=== PATIENT | female | born 1975 | race Caucasian/White ===

== ENCOUNTER → 2017-12-13 11:49 | Outpatient (CLI) | payer SELFPAY ==
[2017-12-13 12:12] LABS: Absolute Lymphocyte Count 1.89 X10^3/ul (0.83-4.51); Absolute Neutrophil Count 4.1 X10^3/uL (2.0-7.7); Basophil# 0.01 X10^3/uL; Basophil% 0.2 % (0-1); Eosinophil# 0.03 X10^3/uL; Eosinophils% 0.5 % (0-5); Hematocrit 37.7 % (37-47); Hemoglobin 12.3 g/dl (12.0-15.0); Lymphocyte # 1.89 X10^3/ul (4.0); Lymphocyte % 29.3 % (19-41); Mean Corp Hgb Conc 32.6 g/gl (32-36); Mean Corpuscular Hgb 27.3 pg (27.0-32.0); Mean Corpuscular Volume 83.6 fL (81-99); Mean Platelet Vol. 9.3 fl (6.2-12.0); Monocyte# 0.46 X10^3/uL; Monocyte% 7.1 % (0-10); Neutrophil # 4.06 X10^3/uL (2.7-7.7); Neutrophil % 62.7 % (47-70); Platelet Count 305 K/mm3 (150-450); RBC Distribution Width CV 14.7 % (11.6-14.6); RBC Distribution Width SD 44.5 fl (35.1-43.9); Red Blood Count 4.51 M/mm3 (4.2-5.4); White Blood Count 6.5 K/mm3 (4.4-11.0)
[2017-12-13 12:21] LABS: Erythrocyte Sedimentation Rate 10 mm/hr (0-20)
[2017-12-13 12:22] LABS: POSITIVE COUNT NO; POSITIVE DIFFERENTIAL NO; POSITIVE MORPHOLOGY NO
== END ==
PROVIDERS: Visit Provider Family Medicine
DX: R51 Headache (principal); R20.0 Anesthesia of skin
CPT/HCPCS: 85025; 85652; 86140

== ENCOUNTER 2017-12-25 07:42 | Day surgery (SDC) | payer BC, SELFPAY ==
[2017-12-25 08:06] LABS: Internal QC Validated? YES +Cl - CLEAR BKGD; Pregnancy, Urine Negative Negative
[2017-12-25 08:10] VITALS: BP 139/76; PULSE 73; RESP 18; TEMP 36.1; O2SAT 97; BMI 66.9
[2017-12-25 08:29] LABS: Anion Gap 8 (5-15); BUN 15 mg/dL (7-18); BUN/Creat Ratio 22.2 RATIO (10-20); Calcium,Total 8.5 mg/dL (8.5-10.1); Chloride 106 mmol/L (98-107); Creatinine, Serum 0.68 mg/dL (0.55-1.02); EST Glomerular Filtration Rate 101 mL/min (>60); Est Glom Filt Rate - Afr Amer 123 mL/min (>60); Estimated Creatinine Clearance 108.72 ml/min; Glucose 132 mg/dL (74-106); Potassium 4.5 mmol/L (3.5-5.1); Sodium Level 139 mmol/L (136-145)
--- NOTE | 2017-12-25 09:45 | TEM_PTH ---
PATIENT: ALEXANDER EVERETT LOC: [facility] [place] U#:[id number] AGE/SX: 42/F ROOM: RE12/25/[address]: Dr. Je Morris MD : 1975 BED: DIS: 12/25/2017 SPEC #: [id number] RECD: 12/25/17 13:55 STATUS: LUIS SAGE #: [id number] KELBY: 12/25/17 09:[address]: Je Morris DEPT: SURGICAL PATHOLOGY RECD BY: Tien Disla ENTERED: 12/25/17 14:20 SP TYPE: TEMPORAL OTHR DR: Dr. Alan Ryder MD Tissues: Temporal region Procedures: Elastin Stain (control) Special Stain Group II Surgery Specimen Level IV HEADER OPERATION: Biopsy, temporal artery PRE-OP DIAGNOSIS: Headaches above eye region, facial pain, numbness TISSUE SUBMITTED: Right temporal artery biopsy MICROSCOPIC DIAGNOSIS Right temporal artery, biopsy: Negative for giant cell arteritis. See comment. SJ:tessa 12/26/17 COMMENT Elastic stain with matched control was used in the evaluation of the specimen. MICROSCOPIC DESCRIPTION Slides are reviewed. GROSS DESCRIPTION Received in fixative is one container labeled with the patient's name and designated right temporal artery biopsy. The specimen consists of an elongated piece of pink-red soft tissue measuring 3 cm in length and 0.1 cm in diameter. Multiple belia are noted. The entire specimen is submitted in one cassette. It will be serially sectioned at the time of embedding. / MOLLY:tessa 12/25/17 TC:4 CPT: 15417, 91656
[2017-12-25] MEDS: Bupivacaine Mpf 0.5% 30 ML VIAL (10:45)
--- NOTE | 2017-12-25 11:12 | PCM.OPRPT ---
Problem List (1) Temporal arteritis Status: Acute Report of Operation Date of Procedure: 12/25/17 Pre-Operative Diagnosis: Suspected right temporal arteritis Post-Operative Diagnosis: Pathology pending Surgery/Procedure Performed:: Right temporal artery biopsy Description of Surgical Findings:: Timeout and informed consent was obtained. 42-year-old female was taken the operating. She was placed on the table the right preauricular area was sterilely prepped and draped. She underwent monitored anesthesia care local anesthetic. 1% lidocaine mixed 50-50 with 0.5% Marcaine was used as a local anesthetic. A total of 8 cc was used. A vertical longitudinal incision was made directly over the palpable artery. Sharp and blunt dissection was used to identify the artery. The fascia overlying was incised to allow for deeper section. Side branches were secured with hemoclips. The vessel was dissected free to a convenient point and then hemoclips were placed proximally distally the vessel was resected and submitted as a specimen. Hemostasis was nicely intact. The wound was closed with a running septic or 5-0 Vicryl. Surgical glue was applied. Telfa tape dressing. Blood loss minimal. No apparent complication. The patient was taken back to the recovery area in satisfactory condition. Specimens segment of vas deferens. Drains none. Blood loss minimal. Je Morris M.D., F.A.C.S. Type of Anesthesia:: Local MAC Anesthesiologist: Hunter Gray
--- NOTE | 2017-12-25 11:16 | PCM.DC.GS ---
Discharge Diet: Light diet - advance as tolerated - if you have questions about your diet instructions, please talk to you doctor. Discharge Activity: May Not Drive - for 1 week or while taking narcotic pain medicine. May shower in (days): 1 Lifting Restrictions: 10 pounds Call your doctor if your incision/area has: Continuous Slow Oozing, Sudden Increased Bleeding, Increased Pain/ Swelling, Increased Redness, Foul Smelling Discharge Call your doctor if you observe: Fever of 101 or Higher Suture Line Care: Avoid Pulling/Pushing, Avoid Pinching/Bending Additional Dressing/Incision Instructions:: Change or remove dressing in 4 days. Leave steri-strips in place for 1 week. You may remove the dressing tomorrow. You may shower tomorrow. You may then redress over the glue was needed to protect from clothing. The glue will gradually wear off between 1 in 3 weeks. Allergies/Adverse Reactions: Allergies animal dander Allergy (Mild, Verified 12/19/17 15:55) Unknown aspirin Allergy (Mild, Verified 12/19/17 15:55) Unknown ibuprofen Allergy (Mild, Verified 12/19/17 15:55) Unknown Medications to take at Discharge atenolol 25 mg tablet 25 mg PO QHS 12/14/17 epinephrine 0.1 mg/mL injection syringe 0.5 ml SUBMUCOSAL INJ ONCE PRN 12/14/17 metoprolol succinate ER 25 mg tablet,extended release 24 hr 25 mg PO QHS 12/14/17 Acetaminophen [Tylenol Extra Strength] 500 - 1,000 mg PO Q6H PRN PRN 12/19/17 Prednisone [Deltasone] 30 mg PO DAILY 12/19/17 Primary Care Physician: Alan Ryder MD [Primary Care Provider] - Please Follow Up With: Je Morris MD - [phone] When: Further office visits can be as needed pending your progress or concerns.
[2017-12-25 11:20] VITALS: BP 114/65; BP 139/76; PULSE 72; RESP 16; TEMP 36.6; O2SAT 96
[2017-12-25 11:25] VITALS: BP 111/59; BP 139/76; PULSE 66; RESP 16; O2SAT 97
[2017-12-25 11:30] VITALS: BP 110/56; BP 139/76; PULSE 77; RESP 16; O2SAT 98
[2017-12-25 11:35] VITALS: BP 112/56; BP 139/76; PULSE 59; RESP 16; TEMP 36.2; O2SAT 98
[2017-12-25 12:12] VITALS: BP 139/76
== END 2017-12-25 12:13 | disposition home or self-care (01) ==
LOC: SDC 07:45 → AC 07:45
PROVIDERS: Anesthesiology; Family Provider Family Medicine; PCP Family Medicine; Visit Provider Surgery
PROC: (CPT 37609; principal; 2017-12-25 09:30)
DX: R51 Headache (principal); R20.0 Anesthesia of skin; R00.2 Palpitations; Z86.2 Personal history of diseases of the blood and blood-forming organs and certain disorders involving the immune mechanism; Z79.52 Long term (current) use of systemic steroids; Z79.899 Other long term (current) drug therapy
CPT/HCPCS: 37609; 36415; 80048; 81025; 88305; 88313; J7120

== ENCOUNTER 2018-04-03 11:31 | Emergency (ER) | payer BC, SELFPAY ==
[2018-04-03 11:34] VITALS: BP 137/72; PULSE 90; RESP 16; TEMP 36.4; O2SAT 99; BMI 67.5
--- NOTE | 2018-04-03 12:02 | CT_ITS ---
STUDY: CT ABDOMEN AND PELVIS WITH CONTRAST REASON FOR EXAM: Female, 42 years old. One-day history of right lower quadrant pain. RADIATION DOSAGE (If Supplied By Facility): CTDIvol = ( 15.41 ) mGy, DLP = ( 1377.62 ) mGycm TECHNIQUE: Transaxial images were obtained from the dome of the diaphragm to the symphysis pubis with oral contrast. 100 ml of Isovue 300 contrast was administered. Sagittal and coronal images were reconstructed. Individualized dose optimization techniques were used for this CT. COMPARISON: None. FINDINGS: The visualized lung bases are unremarkable. The visualized portions of the heart are within normal limits. Normal liver. Normal gallbladder and extrahepatic biliary system. Normal spleen. Normal pancreas. Normal bilateral adrenal glands. Normal right kidney. Normal left kidney. There is a small hiatal hernia. Normal small intestine. Normal colon. The appendix is visualized and appears normal. Normal abdominal aorta. Normal inferior vena cava. Normal retroperitoneum. Normal urinary bladder. Normal abdominal wall. There are degenerative changes of the visualized lumbar spine. CT/Abdomen/Pelvis WITH Contrast IMPRESSION: No acute abnormality is seen. Electronically Signed: Eduard Santa MD at 13:56 EDT Tel [phone], Service support ,
--- NOTE | 2018-04-03 12:02 | ED.VISSUMM ---
- ER Visit Summary Date of Service: 04/03/18 Chief Complaint: Right lower quadrant abdominal pain History of Present Illness: The patient is a 42 F who presents for severe right lower quadrant abdominal pain since last night. Patient states she has had dull achy pain in the right lower quadrant for the last 2 weeks. Last night it acutely worsened. She denies fever, nausea or vomiting, diarrhea, urinary symptoms, back pain. Is not think she is . She has a history of prior right lower quadrant abdominal pain that resolved after a right-sided salpingo-oophorectomy 7 years ago. Physical Examination: Vital signs: afebrile, hemodynamically stable, no hypoxia on room air General: well nourished, well developed, in no distress Skin: warm, dry, no rash, no pallor HEENT: normocephalic and atraumatic; PERRL, EOMI, moist mucous membranes Cardiovascular: regular rate and rhythm without murmurs, no peripheral edema, 2+ pulses all distal extremities Respiratory: No increased work of breathing, lungs are clear to auscultation bilaterally, no rales, rhonchi or wheezing Abdominal: Abdomen is soft, moderate tenderness to RLQ with normoactive bowel sounds, no guarding or rebound, no masses, no rash noted MSK: Moves all extremities, no deformities, normal strength Neuro: Awake and alert, oriented ?4. No facial droop, sensation and motor function intact and symmetric Test Results: Abnormal Lab Results 04/03/18 04/03/18 04/03/18 12:05 12:05 12:05 WBC 6.5 RBC 4.65 Hgb 12.4 Hct 39.1 MCV 84.1 MCH 26.7 L MCHC 31.7 L RDW 14.2 RDW Differential 43.4 Plt Count 251 MPV 9.0 Immature Gran % (Auto) 0.200 Neut % (Auto) 63.4 Lymph % (Auto) 29.4 [place] % (Auto) 6.0 Eos % (Auto) 0.8 Baso % (Auto) 0.2 Absolute Neuts (auto) 4.2 Absolute Lymphs (auto) 1.92 Total Counted Not Reportable Sodium 137 Potassium 4.2 Chloride 105 Carbon Dioxide 24.0 Anion Gap 8 BUN 15 Creatinine 0.70 Estim Creat Clear Calc 105.61 Est GFR (MDRD) Af Amer 117 Est GFR (MDRD) Non-Af 97 BUN/Creatinine Ratio 21.3 H Glucose 94 Calcium 8.6 Total Bilirubin 0.40 AST 16 ALT 21 Alkaline Phosphatase 85 Total Protein 7.4 Albumin 3.1 L Globulin 4.3 H Albumin/Globulin Ratio 0.7 L Serum , Qual NEGATIVE Urine Color Urine Clarity Urine pH Ur Specific [place] Urine Protein Urine Glucose (UA) Urine Ketones Urine Occult Blood Urine Nitrite Urine Bilirubin Urine Urobilinogen Ur Leukocyte Esterase Urine RBC Urine WBC Ur Squamous Epith Cells Urine Bacteria Urine Mucus 04/03/18 13:20 WBC RBC Hgb Hct MCV MCH MCHC RDW RDW Differential Plt Count MPV Immature Gran % (Auto) Neut % (Auto) Lymph % (Auto) [place] % (Auto) Eos % (Auto) Baso % (Auto) Absolute Neuts (auto) Absolute Lymphs (auto) Total Counted Sodium Potassium Chloride Carbon Dioxide Anion Gap BUN Creatinine Estim Creat Clear Calc Est GFR (MDRD) Af Amer Est GFR (MDRD) Non-Af BUN/Creatinine Ratio Glucose Calcium Total Bilirubin AST ALT Alkaline Phosphatase Total Protein Albumin Globulin Albumin/Globulin Ratio Serum , Qual Urine Color Yellow Urine Clarity Sl. Cloudy Urine pH 6.0 Ur Specific [place] 1.010 Urine Protein Negative Urine Glucose (UA) Normal Urine Ketones Negative Urine Occult Blood Negative Urine Nitrite Negative Urine Bilirubin Negative Urine Urobilinogen Normal Ur Leukocyte Esterase 100 H Urine RBC 0 SEEN Urine WBC 0-5 SEEN Ur Squamous Epith Cells 0-5 SEEN Urine Bacteria 1+ Urine Mucus 0 SEEN Clinical Impression(s) from Imaging Studies Abdomen/Pelvis CT 04/03/18 12:02 IMPRESSION: No acute abnormality is seen. Electronically Signed: Eduard Santa MD at 13:56 EDT Tel [phone], Service support , Emergency Department Course and Treatment: Patient was offered and declined pain medications. Workup was performed to evaluate for possible appendicitis or other acute intra-abdominal pathology. Labs showed no leukocytosis, no significant anemia, no electrolyte or renal derangements, no hepatic derangements. CT abdomen and pelvis was performed with IV and p.o. contrast and showed no acute abnormalities, including a normal appendix and no sign of colitis or diverticulitis. These findings were discussed with the patient, who was given follow-up with GI if she continues to have this right lower quadrant abdominal pain. She was given norco to use for pain at night to help her sleep. Otherwise she will use Tylenol. Patient discharged home with return precautions. Treatment Plan: [] Disposition: [] Impression: Right lower quadrant abdominal pain This note was generated with [employer] dictation software. It may contain incorrect words, spelling, and punctuation that were not noted in review of the chart prior to signing ED Disposition - Plan for ED Patient: Disposition: Home or Assisted Living Chief Complaint: Abd Pain Instructions: ED Abdominal Pain Unkn Cause Prescriptions: Hydrocodone/Acetaminophen [[place] 5-325 Tablet] 1 - 2 ea PO 4X/DAY PRN PRN 3 Days #12 tab PRN Reason: Pain Referrals: Alan Ryder MD [Primary Care Provider] - 3-5 Days if not improving Ephraim Nichols MD [NON-STAFF] - 1 Week if not improving Additional Instructions: Your CT scan of your abdomen today did not show appendicitis or any other concerning causes of your abdominal pain. Please continue taking Tylenol as needed for pain. You may use the norco at night for pain and to help you sleep. If you continue to have this abdominal pain, please follow-up with GI physician. If you have any worsening of your condition or any new concerning symptoms, please return immediately to the emergency department for another evaluation.
[2018-04-03] MEDS: 0.9% Normal Saline 1,000 ML 1000 ML IV (12:21)
[2018-04-03 12:24] LABS: Absolute Lymphocyte Count 1.92 X10^3/ul (0.83-4.51); Absolute Neutrophil Count 4.2 X10^3/uL (2.0-7.7); Basophil# 0.01 X10^3/uL; Basophil% 0.2 % (0-1); Eosinophil# 0.05 X10^3/uL; Eosinophils% 0.8 % (0-5); Hematocrit 39.1 % (37-47); Hemoglobin 12.4 g/dl (12.0-15.0); Lymphocyte # 1.92 X10^3/ul (4.0); Lymphocyte % 29.4 % (19-41); Mean Corp Hgb Conc 31.7 g/gl (32-36); Mean Corpuscular Hgb 26.7 pg (27.0-32.0); Mean Corpuscular Volume 84.1 fL (81-99); Monocyte# 0.39 X10^3/uL; Neutrophil # 4.16 X10^3/uL (2.7-7.7); Neutrophil % 63.4 % (47-70); Platelet Count 251 K/mm3 (150-450); RBC Distribution Width CV 14.2 % (11.6-14.6); RBC Distribution Width SD 43.4 fl (35.1-43.9); Red Blood Count 4.65 M/mm3 (4.2-5.4); White Blood Count 6.5 K/mm3 (4.4-11.0)
[2018-04-03 12:27] LABS: POSITIVE COUNT NO; POSITIVE DIFFERENTIAL NO; POSITIVE MORPHOLOGY NO
[2018-04-03 12:34] LABS: ALB/GLOB Ratio 0.7 RATIO (0.9-2.4); AST(SGOT) 16 U/L (15-37); Alanine Aminotransfer ALT/SGPT 21 U/L (13-56); Albumin, Serum 3.1 g/dL (3.2-5.0); Alkaline Phosphatase 85 U/L (45-117); Anion Gap 8 (5-15); BUN 15 mg/dL (7-18); BUN/Creat Ratio 21.3 RATIO (10-20); Calcium,Total 8.6 mg/dL (8.5-10.1); Chloride 105 mmol/L (98-107); EST Glomerular Filtration Rate 97 mL/min (>60); Est Glom Filt Rate - Afr Amer 117 mL/min (>60); Estimated Creatinine Clearance 105.61 ml/min; Globulin 4.3 g/dL (2.2-4.2); Glucose 94 mg/dL (74-106); Potassium 4.2 mmol/L (3.5-5.1); Protein, Total 7.4 g/dL (6.4-8.2); Sodium Level 137 mmol/L (136-145)
[2018-04-03 12:37] LABS: Pregnancy, Serum, hCG Quali. NEGATIVE Negative (0-9 Nonpreg)
[2018-04-03 13:35] LABS: Mucous, Urine 0 SEEN /hpf (<or=2+); Red Blood Cells-Urine 0 SEEN /hpf (0-5)
[2018-04-03 13:37] LABS: Color, Urine Yellow (Yellow); Glucose, Dipstick Normal (Normal); Ketone-Dipstick Negative (Negative); Leukocyte Esterase-Dipstick 100 /ul (Negative); Nitrite-Dipstick Negative (Negative); Occult Blood-Urine Negative /ul (Negative); Protein-Dipstick Negative (Negative); Urine Bilirubin Dipstick Negative (Negative); Urine Clarity Sl. Cloudy (Clear); Urine Urobilinogen Normal (Normal)
[2018-04-03 13:44] LABS: Bacteria 1+ /hpf (None Seen); Squamous Epithelial Cells - UA 0-5 SEEN /hpf (5-10); White Blood Cells 0-5 SEEN /hpf (0-5)
[2018-04-03 14:09] VITALS: BP 121/62; PULSE 76; RESP 18; O2SAT 98
--- NOTE | 2018-04-03 14:53 | ED.DEP ---
ED Disposition - Plan for ED Patient: Disposition: Home or Assisted Living Chief Complaint: Abd Pain Instructions: ED Abdominal Pain Unkn Cause Prescriptions: Hydrocodone/Acetaminophen [[place] 5-325 Tablet] 1 - 2 ea PO 4X/DAY PRN PRN 3 Days #12 tab PRN Reason: Pain Referrals: Alan Ryder MD [Primary Care Provider] - 3-5 Days if not improving Ephraim Nichols MD [NON-STAFF] - 1 Week if not improving Additional Instructions: Your CT scan of your abdomen today did not show appendicitis or any other concerning causes of your abdominal pain. Please continue taking Tylenol as needed for pain. You may use the norco at night for pain and to help you sleep. If you continue to have this abdominal pain, please follow-up with GI physician. If you have any worsening of your condition or any new concerning symptoms, please return immediately to the emergency department for another evaluation.
[2018-04-03 15:27] VITALS: BP 139/58; PULSE 69; RESP 18; O2SAT 100
== END 2018-04-03 15:28 | disposition home or self-care (01) ==
PROVIDERS: Emergency Provider Emergency Medicine; Family Provider Family Medicine; PCP Family Medicine
DX: R10.31 Right lower quadrant pain (principal); E66.9 Obesity, unspecified
CPT/HCPCS: 74177; 80053; 81001; 84703; 85025; 99283; J7030; Q9967; A4216